=== PATIENT | male | born 1985 | race African-American/Black ===

== ENCOUNTER 2016-12-05 03:54 | Emergency (ER) | payer OTHER ==
[~2016-12-05] VITALS: Ht 175.3 cm; Wt 80.0 kg
[~2016-12-05 03:54] MED LIST: OXYC-360 PO
[2016-12-05 03:55] VITALS: BP 125/73; PULSE 83; RESP 16; TEMP 98.4; O2SAT 97
[2016-12-05 06:21] VITALS: BP 96/56; PULSE 57; RESP 18; O2SAT 99
[2016-12-05] MEDS ORDERED: ONDANSETRON HCL 4 MG/2 ML VIAL IV PUSH ONE (06:45)
[2016-12-05] MEDS ORDERED: METOCLOPRAMIDE HCL 10 MG/2 ML VIAL IV PUSH ONE (06:45)
[2016-12-05] MEDS ORDERED: SODIUM CHLOR 0.9% 1000 ML INJ 1,000 ML IV ONE (06:45)
[2016-12-05 06:58] VITALS: BP 107/66; PULSE 82; RESP 16; TEMP 97.8; O2SAT 99
--- NOTE | 2016-12-05 07:09 | PD ---
HPI Chief Complaint: GI Complaint Time Seen by Provider: 04:40 (Deanna Morse MD) Travel History International Travel<30 days: No Contact w/Intl Traveler<30days: No Traveled to known affect area: No (Deanna Morse MD) History of Present Illness HPI This is a 28-year-old male patient with no significant past medical history who presents with a complaint of a 2 to three-day history of abdominal cramps ( Deanna Morse MD) PFSH Past Medical History Diminished Hearing: No Inguinal Hernia: Yes Immunizations Current: Yes Tetanus Vaccination: Unknown Influenza Vaccination: No (Deanna Morse MD) Past Surgical History Surgical History: No Previous Surgery Abdominal Surgery: Yes (INGUINAL SURGERY) (Deanna Morse MD) Social History Alcohol Use: No Tobacco Use: Yes Substance Use: Yes (MARIJUANA) (Deanna Morse MD) Allergies-Medications (Allergen,Severity, Reaction): Coded Allergies: No Known Allergies (Verified , 12/05/16) Reported Meds & Prescriptions Reported Meds & Active Scripts Active No Active Prescriptions or Reported Medications (Aspen Benitez MD) Review of Systems ROS Limitations: Clinical Condition General / Constitutional: Positive: Chills, No: Fever, Weight Gain, Weight Loss, Other Eyes: No: Diploplia, Blurred Vision, Photophobia, Drainage, Redness, Foreign Body Sensation, Pain, Tearing, Blind Spots, Visual changes, Blindness, Other HENT: No: Headaches, Vertigo, Lightheadedness, Sore Throat, Rhinitis, Rhinorrhea, Congestion, Nosebleed, Neck Stiffness, Neck Pain, Masses, Gingival Bleeding, Dental Difficulties, Ear Discharge, Earache, Other Cardiovascular: No: Chest Pain or Discomfort, Palpitations, Irregular Rhythm, Tachycardia, Diaphoresis, Syncope, Dyspnea on exertion, Varicosities, Edema, Cyanosis, Varicosities, Phlebitis, Claudication, Other Respiratory: No: Cough, Shortness of Breath, Wheezing, Sneezing, Orthopnea, Hemoptysis, Stridor, Night Sweats, Pleuritic Pain, Other Gastrointestinal: Positive: Nausea, Vomiting, No: Diarrhea, Abdominal Pain, Hematemesis, Hematochezia, Constipation, Changes in Bowel Habits, Indigestion, Dysphagia, Loss of Appetite, Other Genitourinary: No: Urgency, Frequency, Dysuria, Nocturia, Hematuria, Decreased Urinary Output, Oliguria, Hesitancy, Dribbling, Incontinence, Pelvic Pain, Flank Pain, Dyspareunia, Discharge, Dysmenorrhea, Menorrhagia, Metorrhagia, Vaginal Bleeding, Other Musculoskeletal: Positive: Myalgias, No: Arthralgias, Limited ROM, Weakness, Cramping, Edema, Pain, Atrophy, Other Skin: No Rash, No Itching, No Dryness, No Lumps, No Hives, No Change in Pigmentation, No Change in nails, No Alopecia, No Lesions, No Breast Lumps, No Breast Tenderness, No Breast Swelling, No Other Neurologic: Positive: Weakness, No: Dizziness, Syncope, Focal Abnormalities, Coordination Problem, Tremor, Ataxia, Headache, Change in Mentation, Slurred Speech, Paresthesia, Incontinence, Seizures, Sensory Disturbance, Other Psychiatric: No: Anxiety, Depression, Suicidal Ideations, Disorder of Thought, Mood Disorder, Substance Abuse, Homicidal Ideation, Other Endocrine: No: Heat Intolerance, Cold Intolerance, Polyuria, Polydipsia, Other Hematologic/Lymphatic: No: Easy Bruising, Lymph Node Enlargement, Other (Deanna Morse MD) Physical Exam Exam Limitations: Clinical Condition Narrative GENERAL: A 1-year-old Afro-[place] male resting comfortably on the stretcher SKIN: Focused skin assessment warm/dry.no lesions no cyanosis no erythema HEAD: Atraumatic. Normocephalic. EYES: Pupils equal and round and reactive . No scleral icterus. No injection or drainage. ENT: No nasal bleeding or discharge. Mucous membranes pink and moist. Oral mucosa dry NECK: Trachea midline. No JVD. CARDIOVASCULAR: S1-S2 appreciated. Regular rate and rhythm. No murmur appreciated. Pulses normal throughout. RESPIRATORY: No accessory muscle use. Clear to auscultation. Breath sounds equal bilaterally. GASTROINTESTINAL: Abdomen soft, non-tender, nondistended. Hepatic and splenic margins not palpable. Bowel sounds hyperactive No peritoneal signs. MUSCULOSKELETAL: No obvious deformities. No clubbing. No cyanosis. No edema. NEUROLOGICAL: Awake and alert and oriented 3.. No obvious cranial nerve deficits. Motor and sensory exam grossly within normal limits. Normal speech. No meningeal signs. PSYCHIATRIC: Appropriate mood and affect; insight and judgment normal. No suicidal or homicidal ideation. (Deanna Morse MD) Data Data Orders Complete Blood Count With Diff (12/05/16 06:39) Comprehensive Metabolic Panel (12/05/16 06:39) Sodium Chlor 0.9% 1000 Ml Inj (Ns 1000 M (12/05/16 06:45) Metoclopramide Inj (Reglan Inj) (12/05/16 06:45) Ondansetron Inj (Zofran Inj) (12/05/16 06:45) Abdomen, Flat & Upright (12/05/16 ) (Aspen Benitez MD) MDM Medical Decision Making Medical Screen Exam Complete: Yes Emergency Medical Condition: Yes Differential Diagnosis Cradle Placer signing for document in draft. Narrative Course Cradle [employer]acer signing for document in draft. (Aspen Benitez MD) Scripts No Active Prescriptions or Reported Meds Deanna Morse MD Dec 05, 2016 07:09 Aspen Benitez MD Dec 21, 2016 17:01
[2016-12-05 07:13] LABS: AUTOMATED NEUTROPHIL # 4.6 TH/MM3 (1.8-7.7); BASOPHIL % 0.6 % (0.0-2.0); EOSINOPHIL # 0.1 TH/MM3 (0-0.4); EOSINOPHIL % 1.6 % (0.0-4.0); HEMATOCRIT 42.2 % (39.0-51.0); HEMO FLAGS DIFF FINAL; LYMPH % 29.2 % (9.0-44.0); LYMPHOCYTE # 2.2 TH/MM3 (1.0-4.8); MEAN CELL VOLUME 88.9 FL (80.0-100.0); MEAN CORPUSCULAR HEMOGLOBIN 30.7 PG (27.0-34.0); MEAN CORPUSCULAR HGB CONC 34.6 % (32.0-36.0); MONO % 7.6 % (0.0-8.0); PLATELET COUNT 278 TH/MM3 (150-450); RED BLOOD COUNT 4.75 MIL/MM3 (4.50-5.90); RED CELL DISTRIBUTION WIDTH 13.9 % (11.6-17.2); WHITE BLOOD COUNT 7.5 TH/MM3 (4.0-11.0)
--- NOTE | 2016-12-05 07:19 | RADRPT ---
EXAM DATE/TIME: 12/05/2016 06:49 [facility] COMPARISON: No previous studies available for comparison. INDICATIONS : Vomiting. MEDICAL HISTORY : None. SURGICAL HISTORY : None. ENCOUNTER: Initial ACUITY: 1 day PAIN SCORE: 0/10 LOCATION: Bilateral abdomen FINDINGS: Supine and upright views of the abdomen were performed. The abdominal bowel gas pattern is normal. No air fluid levels are seen. No abnormal masses, calcifications, or organomegaly is seen. The visu alized lower lungs are clear. No evidence of free intraperitoneal gas. The osseous structures are u nremarkable. CONCLUSION: Normal examination. Keven Blanton MD on December 05, 2016 at 7:17 Board Certified Radiologist. This report was verified electronically.
[2016-12-05 07:38] LABS: ALT (GPT) 23 U/L (12-78); ANION GAP 7 MEQ/L (5-15); AST (GOT) 16 U/L (15-37); BICARBONATE 30.7 MEQ/L (21.0-32.0); BLOOD UREA NITROGEN 7 MG/DL (7-18); CHLORIDE 103 MEQ/L (98-107); GLOMERULAR FILTRATION RATE 115 ML/MIN (>89); POTASSIUM 3.5 MEQ/L (3.5-5.1); SODIUM (NA) 141 MEQ/L (136-145)
[2016-12-05 07:39] LABS: ALKALINE PHOSPHATASE 60 U/L (45-117); TOTAL BILIRUBIN ADULT 0.4 MG/DL (0.2-1.0)
--- NOTE | 2016-12-05 08:00 | PD ---
Physical Exam Narrative Received sign out to follow of labs, xray abdomen and reevaluate patient. 31yo M with no PMH here with few days of NBNB vomiting. On my evaluation pt denies any fever,chest pain, sob, current nausea, abdominal pain, focal weakness or numbness or diarrhea. Pt is well appearing with nontender abdomen on exam. Pt received NS IVF and zofran and reglan. Labs reviewed, no leukocytosis. CMP unremarkable. Xray abdomen normal. BP is 107/66. Pt tolerating PO. Pt currently denies any nausea. Return precautions given. Data Data Last Documented VS Vital Signs Date Time Temp Pulse Resp B/P Pulse Ox O2 Delivery O2 Flow Rate FiO2 12/05/16 07:00 17 12/05/16 06:58 97.8 82 107/66 99 Room Air Orders Complete Blood Count With Diff (12/05/16 06:39) Comprehensive Metabolic Panel (12/05/16 06:39) Urinalysis - C+S If Indicated (12/05/16 06:39) Sodium Chlor 0.9% 1000 Ml Inj (Ns 1000 M (12/05/16 06:45) Metoclopramide Inj (Reglan Inj) (12/05/16 06:45) Ondansetron Inj (Zofran Inj) (12/05/16 06:45) Abdomen, Flat & Upright (12/05/16 ) Labs Laboratory Tests Test 12/05/16 06:45 White Blood Count 7.5 TH/MM3 Red Blood Count 4.75 MIL/MM3 Hemoglobin 14.6 GM/DL Hematocrit 42.2 % Mean Corpuscular Volume 88.9 FL Mean Corpuscular Hemoglobin 30.7 PG Mean Corpuscular Hemoglobin 34.6 % Concent Red Cell Distribution Width 13.9 % Platelet Count 278 TH/MM3 Mean Platelet Volume 8.0 FL Neutrophils (%) (Auto) 61.0 % Lymphocytes (%) (Auto) 29.2 % Monocytes (%) (Auto) 7.6 % Eosinophils (%) (Auto) 1.6 % Basophils (%) (Auto) 0.6 % Neutrophils # (Auto) 4.6 TH/MM3 Lymphocytes # (Auto) 2.2 TH/MM3 Monocytes # (Auto) 0.6 TH/MM3 Eosinophils # (Auto) 0.1 TH/MM3 Basophils # (Auto) 0.0 TH/MM3 CBC Comment DIFF FINAL Differential Comment Sodium Level 141 MEQ/L Potassium Level 3.5 MEQ/L Chloride Level 103 MEQ/L Carbon Dioxide Level 30.7 MEQ/L Anion Gap 7 MEQ/L Blood Urea Nitrogen 7 MG/DL Creatinine 0.92 MG/DL Estimat Glomerular Filtration 115 ML/MIN Rate Random Glucose 79 MG/DL Calcium Level 8.9 MG/DL Total Bilirubin 0.4 MG/DL Aspartate Amino Transf 16 U/L (AST/SGOT) Alanine Aminotransferase 23 U/L (ALT/SGPT) Alkaline Phosphatase 60 U/L Total Protein 7.6 GM/DL Albumin 3.7 GM/DL MDM Supervised Visit with EMERY: No Diagnosis Primary Impression: Vomiting Qualified Code: R11.2 - Non-intractable vomiting with nausea, unspecified vomiting type Patient Instructions: General Instructions Departure Forms: Tests/Procedures Additional Instruction: Please return to the ED if symptoms worsen. Please follow up with PMD in 3-7 days. Med/Other Pt SpecificInfo: No Change to Meds Scripts No Active Prescriptions or Reported Meds Disposition: 01 DISCHARGE HOME Condition: Stable Kati Aaron Dec 05, 2016 08:00
[2016-12-05 08:11] VITALS: BP 118/77; TEMP 97.8
== END 2016-12-05 08:13 | disposition home or self-care (01) ==
LOC: NEPC 03:54
DX: Z72.0 Tobacco use (principal); F12.90 Cannabis use, unspecified, uncomplicated; R11.2 Nausea with vomiting, unspecified
CPT/HCPCS: 74020; 80053; 85025; 96361; 96374; 96375; 99284; J2405; J2765; J7030